=== PATIENT | female | born 1980 | race African-American/Black ===

== ENCOUNTER 2017-08-10 06:31 | Emergency (ER) | payer SELFPAY ==
[~2017-08-10] VITALS: Ht 165.1 cm; Wt 59.0 kg
[2017-08-10 07:12] VITALS: BP 145/93
[2017-08-10] MEDS ORDERED: AMOX TR/POT CLAV 875 MG/125 MG TABLET PO ONE (07:45)
[2017-08-10] MEDS ORDERED: TETANUS/DIPHTHERIA TOXOID [ADULT] 0.5 ML SYRINGE IM ONE (07:45)
[2017-08-10] MEDS ORDERED: PERTUSS(ACELL),DIPH,TET VAC/PF 0.5 ML VIAL IM ONE (08:15)
== END 2017-08-10 08:22 | disposition home or self-care (01) ==
LOC: EMS 06:33
DX: S01.151A Open bite of right eyelid and periocular area, initial encounter (principal); H44.001 Unspecified purulent endophthalmitis, right eye; F17.210 Nicotine dependence, cigarettes, uncomplicated; W50.3XXA Accidental bite by another person, initial encounter; Y93.89 Activity, other specified; Y92.89 Other specified places as the place of occurrence of the external cause; Y99.8 Other external cause status
CPT/HCPCS: 90471; 90714; 90715; 99283

== ENCOUNTER 2017-12-18 18:58 | Emergency (ER) | payer SELFPAY ==
[~2017-12-18] VITALS: Ht 165.1 cm; Wt 61.4 kg
[2017-12-18 20:12] LABS: BASOPHILS % (AUTO) 0.1 % (0.0-2.0); EOSINOPHILS % (AUTO) 0.1 % (1.0-6.0); HEMATOCRIT 37.8 % (36-46); HEMOGLOBIN 12.6 g/dL (12.0-16.0); LYMPHOCYTES # (AUTO) 1.2 K/uL (1.0-4.8); LYMPHOCYTES % (AUTO) 9.1 % (22.0-44.0); MEAN CORPUSCULAR HEMOGLOBIN 29.4 pg (26.0-34.0); MEAN CORPUSCULAR HGB CONC 33.4 G/dL (31.0-37.0); MEAN CORPUSCULAR VOLUME 88 fL (80-100); MONOCYTES # (AUTO) 0.8 K/uL (0.1-1.0); MONOCYTES % (AUTO) 6.3 % (2.0-9.0); NEUTROPHILS # (AUTO) 11.3 K/uL (1.8-7.7); NEUTROPHILS % (AUTO) 84.4 % (40.0-70.0); PLATELET COUNT (AUTO) 262 K/uL (150-450); RED CELL DISTRIBUTION WIDTH 13.5 % (11.5-14.5)
[2017-12-18 20:25] LABS: ANION GAP 8 mmol/L (8-16); CALCIUM, TOTAL 9.1 mg/dL (8.8-10.5); CARBON DIOXIDE 29 mmol/L (22-29); CHLORIDE 100 mmol/L (98-107); CREATININE 0.83 mg/dL (0.60-1.30); GLOMERULAR FILTR. RATE CALC > 60 mL/min (>60); GLUCOSE,RANDOM 126 mg/dL (70-110); POTASSIUM 3.3 mmol/L (3.5-5.1); SODIUM SERUM 137 mmol/L (136-145); UREA NITROGEN, BLOOD 8 mg/dL (7-18)
[2017-12-18 20:31] LABS: ALBUMIN 3.1 g/dL (3.4-5.0); ALKALINE PHOSPHATASE 104 U/L (46-116); ASPARTATE AMINOTRANSFERASE 18 U/L (15-37); BILIRUBIN,TOTAL 0.3 mg/dL (0.1-1.0); LIPASE 101 U/L (73-393); TOTAL PROTEIN, SERUM 7.5 g/dL (6.4-8.2)
[2017-12-18 20:51] LABS: ALANINE AMINOTRANSFERASE 22 U/L (12-78)
[2017-12-18] MEDS ORDERED: POTASSIUM CHLORIDE 20 MEQ ER TABLET PO ONE (21:15)
[2017-12-18] MEDS ORDERED: SODIUM CHLORIDE 0.9% 1,000 ML IV ONE (21:15)
[2017-12-18] MEDS ORDERED: KETOROLAC TROMETHAMINE 30 MG/ML VIAL IVP ONE (21:15)
[2017-12-18 22:00] VITALS: BP 116/71
[2017-12-18] MEDS ORDERED: ACETAMINOPHEN 325 MG TABLET PO ONE (22:15)
== END 2017-12-18 22:36 | disposition home or self-care (01) ==
LOC: EMS 19:01
DX: J40 Bronchitis, not specified as acute or chronic (principal); R42 Dizziness and giddiness; F17.210 Nicotine dependence, cigarettes, uncomplicated
CPT/HCPCS: 36415; 71046; 80053; 83690; 84484; 84703; 85025; 93005; 96374; 99285; J1885; J7030

== ENCOUNTER 2018-04-20 08:34 | Inpatient (IN) | payer SELFPAY ==
[~2018-04-20] VITALS: Ht 165.1 cm; Wt 69.0 kg
[2018-04-20 09:30] LABS: BASOPHILS % (AUTO) 0.3 % (0.0-2.0); HEMATOCRIT 38.9 % (36-46); HEMOGLOBIN 13.4 g/dL (12.0-16.0); LYMPHOCYTES # (AUTO) 0.7 K/uL (1.0-4.8); LYMPHOCYTES % (AUTO) 7.5 % (22.0-44.0); MEAN CORPUSCULAR HEMOGLOBIN 30.6 pg (26.0-34.0); MEAN CORPUSCULAR HGB CONC 34.4 G/dL (31.0-37.0); MEAN CORPUSCULAR VOLUME 89 fL (80-100); MONOCYTES # (AUTO) 0.5 K/uL (0.1-1.0); NEUTROPHILS # (AUTO) 8.5 K/uL (1.8-7.7); NEUTROPHILS % (AUTO) 86.2 % (40.0-70.0); PLATELET COUNT (AUTO) 252 K/uL (150-450); RED BLOOD CELL COUNT(AUTO) 4.38 MIL/uL (4.00-5.20); RED CELL DISTRIBUTION WIDTH 13.3 % (11.5-14.5)
[2018-04-20] MEDS ORDERED: ONDANSETRON HCL 4 MG/2 ML VIAL IVP ONE (09:30)
[2018-04-20] MEDS ORDERED: SODIUM CHLORIDE 0.9% 1,000 ML IV ONE ×2 (09:30→12:15)
[2018-04-20] MEDS ORDERED: MORPHINE SULFATE 4 MG/ML SYRINGE IVP ONE ×2 (09:30→12:15)
[2018-04-20 09:41] LABS: ANION GAP 8 mmol/L (8-16); CALCIUM, TOTAL 8.7 mg/dL (8.8-10.5); CARBON DIOXIDE 25 mmol/L (22-29); CHLORIDE 103 mmol/L (98-107); CREATININE 0.75 mg/dL (0.60-1.30); GLOMERULAR FILTR. RATE CALC > 60 mL/min (>60); GLUCOSE,RANDOM 91 mg/dL (70-110); POTASSIUM 3.3 mmol/L (3.5-5.1); SODIUM SERUM 136 mmol/L (136-145); UREA NITROGEN, BLOOD 10 mg/dL (7-18)
[2018-04-20] MEDS ORDERED: IOVERSOL 350 MG/ML 100 ML VIAL ONE (09:46)
[2018-04-20 09:47] LABS: ALANINE AMINOTRANSFERASE 19 U/L (12-78); ALBUMIN 3.6 g/dL (3.4-5.0); ALKALINE PHOSPHATASE 95 U/L (46-116); ASPARTATE AMINOTRANSFERASE 16 U/L (15-37); BILIRUBIN,TOTAL 0.7 mg/dL (0.1-1.0); LIPASE 65 U/L (73-393); TOTAL PROTEIN, SERUM 7.4 g/dL (6.4-8.2)
[2018-04-20 10:36] LABS: APPEARANCE,URINE CLOUDY (CLEAR); BILIRUBIN,URINE NEGATIVE (NEGATIVE); GLUCOSE, URINE (UA) NEGATIVE (NEGATIVE); KETONES,URINE 15 mg/dL (NEGATIVE); LEUKOCYTE ESTERASE ,URINE LARGE (NEGATIVE); NITRATE,URINE POSITIVE (NEGATIVE); OCCULT BLOOD,URINE MODERATE (NEGATIVE); PH,URINE 6.5 (5.0-8.0); PROTEIN,URINE SEE CONFIRM (NEGATIVE); UROBILINOGEN,URINE 0.2 mg/dL (<=1.0)
[2018-04-20 10:44] LABS: SULFOSALICYLIC ACID,URINE 2+ (Negative)
[2018-04-20 10:45] LABS: WBC,URINE 51-100 /HPF (0-5)
[2018-04-20 10:47] LABS: BACTERIA,URINE Moderate /HPF (None Seen)
[2018-04-20 10:48] LABS: SQUAMOUS EPITHELIAL CELL,UR Few /LPF (None Seen)
[2018-04-20] MEDS ORDERED: CefTRIAXone SODIUM 1 GM/VIAL IV ONE (11:30)
[2018-04-20] MEDS ORDERED: CefTRIAXone SODIUM 1 GM in DEXTROSE 5%-WATER 10 ML IV ONE (11:30)
[2018-04-20] MEDS: ONDANSETRON HCL 4 MG/2 ML VIAL IVP PRN (12:12)
[2018-04-20] MEDS ORDERED: POTASSIUM CHL 10 MEQ/WATER 50 ML IV PRN (12:15)
[2018-04-20] MEDS ORDERED: MAGNESIUM HYDROXIDE SUSPENSION 30 ML UDCUP PO PRN (12:15)
[2018-04-20] MEDS ORDERED: ACETAMINOPHEN 325 MG TABLET PO PRN (12:15)
[2018-04-20] MEDS ORDERED: LORazepam 2 MG/ML VIAL IVP ONE (12:15)
[2018-04-20] MEDS: CefTRIAXone SODIUM 1 GM in DEXTROSE 5%-WATER 10 ML IV SCH (12:35)
[2018-04-20] MEDS: POTASSIUM CHLORIDE 20 MEQ ER TABLET PO PRN ×2 (12:56→19:32)
[2018-04-20 14:11] VITALS: BP 120/73
[2018-04-20] MEDS: OxyCODONE HCL/ACETAMINOPHEN 5-325 MG TABLET PO PRN ×3 (15:40→23:27)
[2018-04-20 15:56] VITALS: BP 117/72
[2018-04-20 17:12] LABS: ANION GAP 10 mmol/L (8-16); CALCIUM, TOTAL 7.9 mg/dL (8.8-10.5); CARBON DIOXIDE 24 mmol/L (22-29); CHLORIDE 102 mmol/L (98-107); CREATININE 0.85 mg/dL (0.60-1.30); GLOMERULAR FILTR. RATE CALC > 60 mL/min (>60); GLUCOSE,RANDOM 108 mg/dL (70-110); POTASSIUM 3.3 mmol/L (3.5-5.1); SODIUM SERUM 136 mmol/L (136-145); UREA NITROGEN, BLOOD 8 mg/dL (7-18)
[2018-04-20 19:20] VITALS: BP 96/71
[2018-04-20] MEDS: DOCUSATE SODIUM 100 MG CAPSULE PO SCH (19:26)
[2018-04-20 23:15] VITALS: BP 111/73
[2018-04-21 04:15] VITALS: BP 102/63
[2018-04-21] MEDS: OxyCODONE HCL/ACETAMINOPHEN 5-325 MG TABLET PO PRN ×3 (07:12→18:22)
[2018-04-21 07:34] VITALS: BP 106/62
[2018-04-21] MEDS: DOCUSATE SODIUM 100 MG CAPSULE PO SCH ×2 (08:26→21:00)
[2018-04-21 11:26] VITALS: BP 95/57
[2018-04-21 16:12] VITALS: BP 102/63
[2018-04-21 19:51] VITALS: BP 97/60
[2018-04-21 23:30] VITALS: BP 102/64
[2018-04-22] MEDS: OxyCODONE HCL/ACETAMINOPHEN 5-325 MG TABLET PO PRN ×3 (03:30→19:49)
[2018-04-22 04:15] VITALS: BP 106/66
[2018-04-22 07:34] VITALS: BP 104/63
[2018-04-22] MEDS: DOCUSATE SODIUM 100 MG CAPSULE PO SCH ×2 (08:11→19:49)
[2018-04-22] MEDS: ONDANSETRON HCL 4 MG/2 ML VIAL IVP PRN (08:11)
[2018-04-22] MEDS: CefTRIAXone SODIUM 1 GM in DEXTROSE 5%-WATER 10 ML IV SCH (10:57)
[2018-04-22 10:58] VITALS: BP_SYST 103; BP_SYST 13; BP_DIAS 64
[2018-04-22 15:38] VITALS: BP 102/56
[2018-04-22 19:00] VITALS: BP 114/62
[2018-04-22 23:00] VITALS: BP 102/66
[2018-04-23 04:00] VITALS: BP 128/86
[2018-04-23] MEDS: OxyCODONE HCL/ACETAMINOPHEN 5-325 MG TABLET PO PRN (05:25)
[2018-04-23 06:50] LABS: BASOPHILS % (AUTO) 0.2 % (0.0-2.0); EOSINOPHILS % (AUTO) 2.7 % (1.0-6.0); HEMATOCRIT 35.6 % (36-46); HEMOGLOBIN 11.9 g/dL (12.0-16.0); LYMPHOCYTES # (AUTO) 1.3 K/uL (1.0-4.8); LYMPHOCYTES % (AUTO) 28.7 % (22.0-44.0); MEAN CORPUSCULAR HEMOGLOBIN 29.8 pg (26.0-34.0); MEAN CORPUSCULAR HGB CONC 33.5 G/dL (31.0-37.0); MEAN CORPUSCULAR VOLUME 89 fL (80-100); MONOCYTES # (AUTO) 0.9 K/uL (0.1-1.0); MONOCYTES % (AUTO) 21.4 % (2.0-9.0); NEUTROPHILS # (AUTO) 2.1 K/uL (1.8-7.7); PLATELET COUNT (AUTO) 245 K/uL (150-450)
[2018-04-23 07:03] LABS: ALANINE AMINOTRANSFERASE 47 U/L (12-78); ALBUMIN 2.7 g/dL (3.4-5.0); ALKALINE PHOSPHATASE 99 U/L (46-116); ANION GAP 3 mmol/L (8-16); ASPARTATE AMINOTRANSFERASE 35 U/L (15-37); BILIRUBIN,TOTAL 0.2 mg/dL (0.1-1.0); CALCIUM, TOTAL 8.5 mg/dL (8.8-10.5); CARBON DIOXIDE 29 mmol/L (22-29); CHLORIDE 107 mmol/L (98-107); CREATININE 0.82 mg/dL (0.60-1.30); GLOMERULAR FILTR. RATE CALC > 60 mL/min (>60); GLUCOSE,RANDOM 102 mg/dL (70-110); POTASSIUM 4.4 mmol/L (3.5-5.1); SODIUM SERUM 139 mmol/L (136-145); TOTAL PROTEIN, SERUM 6.7 g/dL (6.4-8.2); UREA NITROGEN, BLOOD 9 mg/dL (7-18)
[2018-04-23 07:53] VITALS: BP 100/60
[2018-04-23] MEDS: DOCUSATE SODIUM 100 MG CAPSULE PO SCH (08:20)
[2018-04-23 08:24] LABS: PLATELET MORPHOLOGY COMMENT LARGE PLTS PRESENT
[2018-04-23 11:40] VITALS: BP 126/84
== END 2018-04-23 14:45 | disposition left against medical advice (07) | DRG 690 ==
LOC: EMS 08:36 → 4E 12:38
PROVIDERS: ADMIT Internal Medicine; ATTEND Internal Medicine
DX: N10 Acute pyelonephritis (principal); F17.210 Nicotine dependence, cigarettes, uncomplicated; M43.16 Spondylolisthesis, lumbar region; Z71.6 Tobacco abuse counseling
CPT/HCPCS: 74177; 84132; 87086; 96365; 96366; 96375; 96376; 99285; J0696; J2270; J2405; J7030; J7060

== ENCOUNTER 2019-04-28 11:33 | Emergency (ER) | payer MEDICAID ==
[~2019-04-28] VITALS: Ht 165.1 cm; Wt 75.0 kg
[2019-04-28 11:36] VITALS: BP 110/72
[2019-04-28] MEDS ORDERED: ACETAMINOPHEN 500 MG TABLET PO ONE (14:30)
[2019-04-28 14:37] LABS: BASOPHILS % (AUTO) 0.2 % (0.0-2.0); EOSINOPHILS % (AUTO) 0.3 % (1.0-6.0); HEMATOCRIT 29.5 % (36-46); HEMOGLOBIN 9.8 g/dL (12.0-16.0); LYMPHOCYTES # (AUTO) 2.1 K/uL (1.0-4.8); LYMPHOCYTES % (AUTO) 22.5 % (22.0-44.0); MEAN CORPUSCULAR HGB CONC 33.3 G/dL (31.0-37.0); MEAN CORPUSCULAR VOLUME 90 fL (80-100); MONOCYTES % (AUTO) 11.2 % (2.0-9.0); NEUTROPHILS # (AUTO) 6.1 K/uL (1.8-7.7); NEUTROPHILS % (AUTO) 65.8 % (40.0-70.0); PLATELET COUNT (AUTO) 248 K/uL (150-450); RED BLOOD CELL COUNT(AUTO) 3.27 MIL/uL (4.00-5.20); RED CELL DISTRIBUTION WIDTH 13.7 % (11.5-14.5)
[2019-04-28 14:41] LABS: APPEARANCE,URINE CLOUDY (CLEAR); BILIRUBIN,URINE NEGATIVE (NEGATIVE); GLUCOSE, URINE (UA) NEGATIVE (NEGATIVE); KETONES,URINE NEGATIVE (NEGATIVE); LEUKOCYTE ESTERASE ,URINE MODERATE (NEGATIVE); NITRATE,URINE NEGATIVE (NEGATIVE); OCCULT BLOOD,URINE NEGATIVE (NEGATIVE); PH,URINE 6.5 (5.0-8.0); PROTEIN,URINE TRACE (NEGATIVE); UROBILINOGEN,URINE 0.2 mg/dL (<=1.0)
[2019-04-28 14:44] LABS: ANION GAP 9 mmol/L (8-16); CALCIUM, TOTAL 9.7 mg/dL (8.8-10.5); CARBON DIOXIDE 25 mmol/L (22-29); CHLORIDE 101 mmol/L (98-107); CREATININE 0.82 mg/dL (0.60-1.30); GLOMERULAR FILTR. RATE CALC > 60 mL/min (>60); GLUCOSE,RANDOM 73 mg/dL (70-110); POTASSIUM 3.7 mmol/L (3.5-5.1); SODIUM SERUM 135 mmol/L (136-145); UREA NITROGEN, BLOOD 9 mg/dL (7-18)
[2019-04-28 14:46] LABS: BACTERIA,URINE Few /HPF (None Seen); RBC,URINE 0-2 /HPF (0-2); SQUAMOUS EPITHELIAL CELL,UR Moderate /LPF (None Seen)
== END 2019-04-28 15:44 | disposition home or self-care (01) ==
LOC: EMS 11:33
DX: O23.42 Unspecified infection of urinary tract in pregnancy, second trimester (principal); O26.892 Other specified pregnancy related conditions, second trimester; M54.5 Low back pain; O99.012 Anemia complicating pregnancy, second trimester; O99.332 Smoking (tobacco) complicating pregnancy, second trimester; F17.210 Nicotine dependence, cigarettes, uncomplicated; Z3A.14 14 weeks gestation of pregnancy
CPT/HCPCS: 76801; 76817; 87086

== ENCOUNTER 2019-05-09 13:22 | Emergency (ER) | payer MEDICAID ==
[~2019-05-09] VITALS: Ht 162.6 cm; Wt 72.7 kg
[2019-05-09] MEDS ORDERED: PRENATAL PO (13:33)
[2019-05-09] MEDS ORDERED: AMOX1TAB15 PO (13:33)
[2019-05-09] MEDS ORDERED: ACETAMINOPHEN 500 MG TABLET PO ONE (14:30)
[2019-05-09 14:36] LABS: BASOPHILS % (AUTO) 0.9 % (0.0-2.0); EOSINOPHILS % (AUTO) 0.5 % (1.0-6.0); HEMATOCRIT 30.7 % (36-46); HEMOGLOBIN 10.3 g/dL (12.0-16.0); LYMPHOCYTES # (AUTO) 1.9 K/uL (1.0-4.8); LYMPHOCYTES % (AUTO) 21.8 % (22.0-44.0); MEAN CORPUSCULAR HEMOGLOBIN 29.9 pg (26.0-34.0); MEAN CORPUSCULAR HGB CONC 33.4 G/dL (31.0-37.0); MEAN CORPUSCULAR VOLUME 89 fL (80-100); MONOCYTES # (AUTO) 0.8 K/uL (0.1-1.0); MONOCYTES % (AUTO) 9.5 % (2.0-9.0); NEUTROPHILS # (AUTO) 5.7 K/uL (1.8-7.7); NEUTROPHILS % (AUTO) 67.3 % (40.0-70.0); PLATELET COUNT (AUTO) 254 K/uL (150-450); RED BLOOD CELL COUNT(AUTO) 3.44 MIL/uL (4.00-5.20); RED CELL DISTRIBUTION WIDTH 13.2 % (11.5-14.5)
[2019-05-09 14:45] LABS: ANION GAP 11 mmol/L (8-16); CALCIUM, TOTAL 9.1 mg/dL (8.8-10.5); CARBON DIOXIDE 24 mmol/L (22-29); CHLORIDE 102 mmol/L (98-107); GLOMERULAR FILTR. RATE CALC > 60 mL/min (>60); GLUCOSE,RANDOM 91 mg/dL (70-110); POTASSIUM 3.4 mmol/L (3.5-5.1); SODIUM SERUM 137 mmol/L (136-145); UREA NITROGEN, BLOOD 10 mg/dL (7-18)
[2019-05-09 17:03] VITALS: BP 114/66
[2019-05-09 17:05] VITALS: BP 114/70
== END 2019-05-09 17:55 | disposition home or self-care (01) ==
LOC: EMS 14:16
DX: O20.9 Hemorrhage in early pregnancy, unspecified (principal); O26.892 Other specified pregnancy related conditions, second trimester; O21.9 Vomiting of pregnancy, unspecified; Z3A.15 15 weeks gestation of pregnancy
CPT/HCPCS: 36415; 36430; 76805; 80048; 85025; 86900; 86901; 99285; J2788

== ENCOUNTER 2019-07-11 07:59 | Observation (INO) | payer MEDICAID ==
[~2019-07-11] VITALS: Ht 162.6 cm; Wt 74.4 kg
[~2019-07-11 07:59] MED LIST: AMOX1TAB15 PO; PRENATAL PO
[2019-07-11 09:03] VITALS: BP 101/57
== END 2019-07-11 22:31 | disposition home or self-care (01) ==
LOC: 4S 08:00
PROVIDERS: ADMIT Obstetrics & Gynecology; ATTEND Obstetrics & Gynecology
DX: O36.8120 Decreased fetal movements, second trimester, not applicable or unspecified (principal); Z3A.25 25 weeks gestation of pregnancy
CPT/HCPCS: 76811; 81002; G0378

== ENCOUNTER 2019-07-24 06:25 | Observation (INO) | payer MEDICAID ==
[~2019-07-24] VITALS: Ht 165.1 cm; Wt 75.7 kg
== END 2019-07-24 09:10 | disposition home or self-care (01) ==
LOC: 4S 06:25
PROVIDERS: ADMIT Obstetrics & Gynecology; ATTEND Obstetrics & Gynecology
DX: O36.8120 Decreased fetal movements, second trimester, not applicable or unspecified (principal); O09.522 Supervision of elderly multigravida, second trimester; Z3A.26 26 weeks gestation of pregnancy
CPT/HCPCS: 81002; G0378

== ENCOUNTER 2019-08-21 19:51 | Observation (INO) | payer MEDICAID ==
[~2019-08-21] VITALS: Ht 165.1 cm; Wt 76.2 kg
[2019-08-21 20:20] VITALS: BP 113/69
[2019-08-21 21:46] LABS: APPEARANCE,URINE CLOUDY (CLEAR); BILIRUBIN,URINE NEGATIVE (NEGATIVE); GLUCOSE, URINE (UA) NEGATIVE (NEGATIVE); KETONES,URINE NEGATIVE (NEGATIVE); LEUKOCYTE ESTERASE ,URINE SMALL (NEGATIVE); NITRATE,URINE NEGATIVE (NEGATIVE); OCCULT BLOOD,URINE NEGATIVE (NEGATIVE); PROTEIN,URINE NEGATIVE (NEGATIVE)
[2019-08-21 21:59] LABS: BACTERIA,URINE Few /HPF (None Seen); RBC,URINE 0-2 /HPF (0-2); SQUAMOUS EPITHELIAL CELL,UR Moderate /LPF (None Seen)
== END 2019-08-21 22:45 | disposition home or self-care (01) ==
LOC: 4S 19:51
PROVIDERS: ADMIT Obstetrics & Gynecology; ATTEND Obstetrics & Gynecology
DX: O26.893 Other specified pregnancy related conditions, third trimester (principal); N89.8 Other specified noninflammatory disorders of vagina; M32.9 Systemic lupus erythematosus, unspecified; Z3A.30 30 weeks gestation of pregnancy
CPT/HCPCS: 36415; 76815; 80307 ×8; 80324; 80349; 81001; 82731; 87086; 87110; 87210; 89060; G0378

== ENCOUNTER 2019-08-28 16:56 | Observation (INO) | payer MEDICAID ==
[~2019-08-28] VITALS: Ht 165.1 cm; Wt 78.0 kg
[2019-08-28] MEDS ORDERED: AZITHROMYCIN 250 MG TABLET PO ONE (18:15)
[2019-08-28 18:20] VITALS: BP 107/63
[2019-08-28] MEDS: RINGERS SOLUTION,LACTATED 1,000 ML IV SCH (20:04)
[2019-08-28 20:39] VITALS: BP 107/71
[2019-08-28 20:57] LABS: APPEARANCE,URINE CLOUDY (CLEAR); BILIRUBIN,URINE NEGATIVE (NEGATIVE); GLUCOSE, URINE (UA) NEGATIVE (NEGATIVE); KETONES,URINE NEGATIVE (NEGATIVE); LEUKOCYTE ESTERASE ,URINE MODERATE (NEGATIVE); NITRATE,URINE NEGATIVE (NEGATIVE); OCCULT BLOOD,URINE NEGATIVE (NEGATIVE); PROTEIN,URINE TRACE (NEGATIVE)
[2019-08-28 21:10] LABS: BACTERIA,URINE Moderate /HPF (None Seen); MUCUS,URINE Moderate LPF (None Seen); SQUAMOUS EPITHELIAL CELL,UR Moderate /LPF (None Seen)
[2019-08-28 21:14] LABS: RBC,URINE 0-2 /HPF (0-2)
[2019-08-28] MEDS ORDERED: BETAMETHASONE SOLUSPAN 6 MG/ML 5 ML VIAL IM SCH (21:30)
[2019-08-28] MEDS: AMPICILLIN SODIUM 2 GM/NS 100 ML IV SCH (21:42)
[2019-08-28] MEDS ORDERED: INFLUENZA VIRUS VACCINE QVS 2019-20 (3YR+)/PF 60 MCG/0.5 ML SYRINGE IM ONE (23:30)
[2019-08-29] MEDS: RINGERS SOLUTION,LACTATED 1,000 ML IV SCH (03:17)
[2019-08-29] MEDS: AMPICILLIN SODIUM 2 GM/NS 100 ML IV SCH ×2 (03:19→07:35)
[2019-08-29] MEDS ORDERED: METOCLOPRAMIDE HCL 5 MG/ML 2 ML VIAL IVP PRN (04:30)
[2019-08-29] MEDS ORDERED: CITRIC ACID/SODIUM CITRATE 30 ML SOLUTION UDCUP PO PRN (04:30)
[2019-08-29] MEDS ORDERED: MetroNIDAZOLE 500 MG/NACL 100 ML IV SCH (05:00)
[2019-08-29 05:59] LABS: BASOPHILS % (AUTO) 0.1 % (0.0-2.0); EOSINOPHILS % (AUTO) 0 % (1.0-6.0); HEMATOCRIT 27.6 % (36-46); HEMOGLOBIN 9.2 g/dL (12.0-16.0); LYMPHOCYTES # (AUTO) 0.9 K/uL (1.0-4.8); LYMPHOCYTES % (AUTO) 6.2 % (22.0-44.0); MEAN CORPUSCULAR HEMOGLOBIN 29.5 pg (26.0-34.0); MEAN CORPUSCULAR HGB CONC 33.5 G/dL (31.0-37.0); MEAN CORPUSCULAR VOLUME 88 fL (80-100); MONOCYTES # (AUTO) 0.3 K/uL (0.1-1.0); MONOCYTES % (AUTO) 1.9 % (2.0-9.0); NEUTROPHILS # (AUTO) 12.8 K/uL (1.8-7.7); NEUTROPHILS % (AUTO) 91.8 % (40.0-70.0); PLATELET COUNT (AUTO)-OB 284 K/uL (150-450); RED BLOOD CELL COUNT(AUTO) 3.13 MIL/uL (4.00-5.20); RED CELL DISTRIBUTION WIDTH 13.2 % (11.5-14.5)
[2019-08-29] MEDS ORDERED: OXYGEN THERAPY IH SCH (08:00)
== END 2019-08-29 10:45 | disposition home or self-care (01) ==
LOC: EMS 16:57 → INTOOBSV 17:20 → 4S 17:20
PROVIDERS: ADMIT Obstetrics & Gynecology; ATTEND Obstetrics & Gynecology
DX: O42.913 Preterm premature rupture of membranes, unspecified as to length of time between rupture and onset of labor, third trimester (principal); O62.9 Abnormality of forces of labor, unspecified; Z3A.31 31 weeks gestation of pregnancy
CPT/HCPCS: 36415 ×2; 76815; 80307 ×8; 80324; 80349; 81001; 85025; 86850; 86900; 86901; 87086; 89060; 96365; 96366; 96367; 96372; 99284; G0378 ×2; J0290 ×2; J0702; J3490; J7120 ×2

== ENCOUNTER 2022-01-13 21:12 | Emergency (ER) | payer MEDICAID, OTHER ==
[~2022-01-13] VITALS: Ht 152.4 cm; Wt 72.0 kg
[~2022-01-13 21:12] MED LIST changes: -AMOX1TAB15 PO
[2022-01-13 21:28] VITALS: BP 169/101
[2022-01-13] MEDS ORDERED: ACETAMINOPHEN 500 MG TABLET PO ONE (22:45)
[2022-01-13] MEDS ORDERED: IBUPROFEN 600 MG TABLET PO ONE (22:45)
[2022-01-13] MEDS ORDERED: IBUP-1554 PO (22:46)
[2022-01-13] MEDS ORDERED: ACET-66 PO (22:46)
== END 2022-01-13 23:05 | disposition home or self-care (01) ==
LOC: EMS 22:27
DX: S16.1XXA Strain of muscle, fascia and tendon at neck level, initial encounter (principal); S20.221A Contusion of right back wall of thorax, initial encounter; F12.90 Cannabis use, unspecified, uncomplicated; F17.210 Nicotine dependence, cigarettes, uncomplicated; X50.0XXA Overexertion from strenuous movement or load, initial encounter; Y93.89 Activity, other specified; Y92.89 Other specified places as the place of occurrence of the external cause; Y99.8 Other external cause status
CPT/HCPCS: 99283

== ENCOUNTER 2022-10-31 18:55 | Emergency (ER) | payer OTHER ==
[~2022-10-31] VITALS: Ht 165.1 cm; Wt 81.8 kg
[~2022-10-31 18:55] MED LIST changes: +ACET-66 PO; +IBUP-1554 PO
[2022-10-31] MEDS ORDERED: CEPHALEXIN MONOHYDRATE 500 MG CAPSULE PO ONE (19:15)
[2022-10-31] MEDS ORDERED: LIDOCAINE 1% 10 ML VIAL ID ONE (19:15)
[2022-10-31] MEDS ORDERED: TraMADol HCL 50 MG TABLET PO ONE (19:15)
[2022-10-31] MEDS ORDERED: SULFAMETHOX/TRIMETH DS 800-160 MG/TABLET PO ONE (19:15)
[2022-10-31] MEDS ORDERED: CEPH-558 PO (19:28)
[2022-10-31] MEDS ORDERED: SULF-261 PO (19:28)
[2022-10-31 19:29] VITALS: BP 112/67
== END 2022-10-31 20:35 | disposition home or self-care (01) ==
LOC: EMS 19:03
DX: L02.01 Cutaneous abscess of face (principal); F17.210 Nicotine dependence, cigarettes, uncomplicated; F12.90 Cannabis use, unspecified, uncomplicated; Z98.890 Other specified postprocedural states
CPT/HCPCS: 99284; 10060; J3490

== ENCOUNTER 2023-02-05 04:49 | Emergency (ER) | payer OTHER ==
[~2023-02-05] VITALS: Ht 172.7 cm; Wt 86.4 kg
[~2023-02-05 04:49] MED LIST changes: +CEPH-558 PO; +SULF-261 PO
[2023-02-05] MEDS ORDERED: PredniSONE 20 MG TABLET PO ONE (06:45)
[2023-02-05] MEDS ORDERED: LIDOCAINE 5% TRANSDERMAL PATCH TD ONE (06:45)
[2023-02-05] MEDS ORDERED: DiphenhydrAMINE HCL 25 MG CAPSULE PO ONE (06:45)
[2023-02-05] MEDS ORDERED: FAMOTIDINE 20 MG TABLET PO ONE (06:45)
[2023-02-05] MEDS ORDERED: KETOROLAC TROMETHAMINE 30 MG/ML VIAL IM ONE (06:45)
[2023-02-05 08:45] LABS: APPEARANCE,URINE HAZY (CLEAR); BILIRUBIN,URINE NEGATIVE (NEGATIVE); GLUCOSE, URINE (UA) NEGATIVE (NEGATIVE); KETONES,URINE NEGATIVE (NEGATIVE); LEUKOCYTE ESTERASE ,URINE MODERATE (NEGATIVE); NITRATE,URINE NEGATIVE (NEGATIVE); OCCULT BLOOD,URINE TRACE (NEGATIVE); PH,URINE 5.5 (5.0-8.0); PROTEIN,URINE NEGATIVE (NEGATIVE); SPECIFIC GRAVITIY, URINE 1.013 (1.003-1.030); UROBILINOGEN,URINE <=1.0 mg/dL (<=1.0)
[2023-02-05] MEDS ORDERED: CEFP100T8 PO (09:06)
[2023-02-05] MEDS ORDERED: PRED-554 PO (09:06)
[2023-02-05 09:11] LABS: RBC,URINE 0-2 /HPF (0-2)
[2023-02-05 09:13] LABS: BACTERIA,URINE Few /HPF (None Seen); SQUAMOUS EPITHELIAL CELL,UR Moderate /LPF (None Seen)
[2023-02-05 09:14] VITALS: BP 115/76
== END 2023-02-05 09:25 | disposition home or self-care (01) ==
LOC: EMS 04:50
DX: T78.40XA Allergy, unspecified, initial encounter (principal); M54.50 Low back pain, unspecified; F12.90 Cannabis use, unspecified, uncomplicated; F17.210 Nicotine dependence, cigarettes, uncomplicated; Z98.890 Other specified postprocedural states; X58.XXXA Exposure to other specified factors, initial encounter
CPT/HCPCS: 99283; 81001; 84703; 87086; 87186; 96372; J1885; J7512

== ENCOUNTER 2025-05-05 13:36 | Emergency (ER) | payer OTHER ==
[~2025-05-05] VITALS: Ht 165.1 cm; Wt 63.6 kg
[~2025-05-05 13:36] MED LIST changes: +CEFP100T8 PO; +PRED-554 PO
[2025-05-05 13:41] VITALS: BP 112/70; PULSE 86; RESP 18; TEMP 99; O2SAT 98
[2025-05-05] MEDS ORDERED: SULF-261 PO (15:08)
[2025-05-05] MEDS ORDERED: CEPH-558 PO (15:08)
[2025-05-05] MEDS ORDERED: IBUP-1492 PO (15:08)
[2025-05-05] MEDS: PERTUSS(ACELL),DIPH,TET/PF 0.5 ML SYRINGE [ADULT] IM. ONE (15:19)
== END 2025-05-05 16:00 | disposition still patient (30) ==
LOC: EMS 13:38
DX: L02.211 Cutaneous abscess of abdominal wall (principal); F12.90 Cannabis use, unspecified, uncomplicated; F17.210 Nicotine dependence, cigarettes, uncomplicated; W57.XXXA Bitten or stung by nonvenomous insect and other nonvenomous arthropods, initial encounter
CPT/HCPCS: 10060; 90471; 90715; 99283